=== PATIENT | male | born 1960 | race Hispanic/Latino ===

== ENCOUNTER 2018-01-14 20:30 | Emergency (ER) | payer SELFPAY ==
[2018-01-14] MEDS ORDERED: HYDROcodone/Acetaminophen 5/325 mg Tablet ONE (22:56)
--- NOTE | 2018-01-15 00:03 | CT ---
BRAIN CT WITHOUT IV CONTRAST: 01/14/18 HISTORY: 57-year-old male with history of a fall and injury from trauma. No focal mass or midline shift. No intra or extra-axial hemorrhage. There are moderate sinus mucosal changes bilaterally. IMPRESSION: No acute intracranial process. No mass or bleed. No significant change from 10/06/12. POS: [facility]
[2018-01-15] MEDS ORDERED: Methocarbamol 500 MG TAB PO SCH (00:15)
--- NOTE | 2018-01-15 06:39 | CT ---
CERVICAL SPINE CT SCAN WITHOUT IV CONTRAST: HISTORY: A 57-year-old male with a history of diffuse spinal tenderness and paresthesias following a fall. FINDINGS: Multilevel disk osteophytosis changes are noted. There is no evidence for an acute fracture or dislo cation. There are some prominent bilateral vascular carotid artery calcifications. There are some d isk osteophytosis changes, resulting in some central canal, lateral recess, and foraminal stenotic ch anges, most marked at C5-C6, followed by the C4-C5 and C3-C4 levels. If the patient has symptoms con cerning for acute radiculopathy, consider follow-up nonemergent MRI study for further evaluation. Th yodit disk osteophytosis changes appear to have progressed somewhat when compared to 08/29/2016. IMPRESSION: 1. No acute fracture or dislocation. 2. Multilevel disk osteophytosis with some variable severity canal, lateral recess, and foraminal st enosis, most marked at C5-C6, followed by C4-C5, possibly slightly progressive from a 2016 study. Co nsider follow-up MRI on a nonemergent basis. POS: [facility]
--- NOTE | 2018-01-15 06:40 | CT ---
THORACIC SPINE CT SCAN WITHOUT IV CONTRAST: HISTORY: A 57-year-old female with a history of thoracic spine pain, following trauma from a fall. FINDINGS: No evidence for acute fracture or dislocation. Generalized spondylosis. No significant canal stenos is. IMPRESSION: Unremarkable thoracic spine CT scan without intravenous contrast. No acute fracture or dislocation. POS: [facility]
--- NOTE | 2018-01-15 08:35 | CT ---
PRELIMINARY REPORT/[facility]/EMERGENTY AFTER-HOURS PROCEDURE CT Lumbar Spine Without Intravenous Contrast CLINICAL HISTORY: 57 years old, male; Injury or trauma; Fall; Initial encounter; Abrasion; Injury date: 01/14/18; Patient HX: 57 y/o m with presentation of fall x30-45 minutes ago. Pt reports that he slipped and fell onto his bottom. When he tried to get up, pt states that he started to have numbness in the lower back and ble and now states that he has tingling in his ble when he stands up. Pt states that he now also has tingling in his bue. Pt also reports that he hit his head, but denies loc TECHNIQUE: Axial computed tomography images of the lumbar spine without intravenous contrast. COMPARISON: No relevant prior studies available. FINDINGS: Vertebrae: There is no evidence of acute fracture or spondylolisthesis. Normal lordosis. Vertebral katherine dy heights are well-maintained. The visualized pelvic bones are normal Discs/spinal canal/neural foramina: Mild to moderate multilevel degenerative disc change with circumf erential disc bulges. No significant canal stenosis. Mild multilevel neural foraminal stenosis. L5/S1 vacuum disc phenomena. Soft tissues: Unremarkable. IMPRESSION: No acute fracture or central canal stenosis. Thank you for allowing us to participate in the care of your patient. Dictated and Authenticated by: Emmanuel Sims MD 01/15/2018 12:38 AM Central Time ([place] & [place]) FINAL REPORT LUMBAR SPINE CT NONCONTRAST: Date: 01/14/18 FINDINGS/IMPRESSION: I agree with the preliminary interpretation provided above by Becky. No acute fracture or subluxation. POS: [facility]
== END 2018-01-15 01:15 | disposition home or self-care (01) ==
LOC: ERS 20:30
DX: R20.2 Paresthesia of skin (principal); M54.9 Dorsalgia, unspecified; E11.9 Type 2 diabetes mellitus without complications; E78.5 Hyperlipidemia, unspecified; I10 Essential (primary) hypertension; F17.210 Nicotine dependence, cigarettes, uncomplicated; Z71.6 Tobacco abuse counseling; Z79.84 Long term (current) use of oral hypoglycemic drugs; Z79.899 Other long term (current) drug therapy; W01.0XXA Fall on same level from slipping, tripping and stumbling without subsequent striking against object, initial encounter
CPT/HCPCS: 70450; 72125; 72128; 72131; 99406

== ENCOUNTER 2019-02-08 13:36 | Outpatient (CLI) | payer MEDICAID ==
--- NOTE | 2019-02-08 14:52 | RAD ---
EXAM: Chest 2 views: HISTORY: COPD COMPARISON: 08/29/2016 FINDINGS: Postop midline sternotomy. Heart size:Within normal limits. Lungs:Clear of acute process. Atherosclerotic changes of the aorta. No confluent pneumonia, overt edema, pleural effusion, pneumothorax, or other significant acute proce ss. IMPRESSION: Stable appearance of the chest. Atherosclerosis of the aorta. No acute intrathoracic disease.
--- NOTE | 2019-02-10 03:53 | DN ---
DATE OF PROCEDURE: 02/08/2019 PROCEDURE: Arterial ultrasound performed on 02/08. INTERPRETATION: Bilateral lower extremity arterial Doppler ultrasounds were performed. The patient has a history of diabetes, hypertension, dyslipidemia, and coronary artery disease. He has bilateral upper and lower extremity pain with any movement. On the right, arterial waveforms are biphasic throughout. There is a slight decrease in the peak area at the level of the popliteal artery, but otherwise normal arterial ultrasound. Ankle-brachial index is 0.71. On the left, waveforms are biphasic throughout. There is a significant decrease in waveform peak area in the popliteal and again in the posterior tibial, dorsalis pedis waveform is normal. Ankle-brachial index is 0.65. ASSESSMENT: Probable superficial femoral artery/popliteal disease bilaterally, left greater than right with ankle-brachial indices consistent with bilateral claudication. Job ID: [id number]
== END 2019-02-08 13:37 | disposition home or self-care (01) ==
LOC: ULT 13:36
PROVIDERS: ATTEND Internal Medicine
DX: J44.9 Chronic obstructive pulmonary disease, unspecified (principal); I73.9 Peripheral vascular disease, unspecified; I70.0 Atherosclerosis of aorta
CPT/HCPCS: 71046; 93922

== ENCOUNTER 2022-10-30 08:59 | Emergency (ER) | payer MEDICAID ==
[2022-10-30] MEDS ORDERED: Ketorolac Tromethamine 30 MG/ML VIAL ONE (10:49)
[2022-10-30] MEDS ORDERED: predniSONE 20 MG TAB ONE (11:21)
== END 2022-10-30 12:00 | disposition home or self-care (01) ==
LOC: ERS 08:59
DX: M54.42 Lumbago with sciatica, left side (principal); E11.9 Type 2 diabetes mellitus without complications; E78.00 Pure hypercholesterolemia, unspecified; I10 Essential (primary) hypertension; F17.210 Nicotine dependence, cigarettes, uncomplicated; Z79.84 Long term (current) use of oral hypoglycemic drugs; Z79.899 Other long term (current) drug therapy
CPT/HCPCS: 96372; J1885; J7512

== ENCOUNTER 2023-01-30 13:28 | Outpatient (CLI) | payer OTHER | END 2023-01-30 13:29 | disposition home or self-care (01) | LOC: TBSIIMAG 13:28 | PROVIDERS: ATTEND Surgery | DX: M47.12 Other spondylosis with myelopathy, cervical region (principal); M47.26 Other spondylosis with radiculopathy, lumbar region; M48.02 Spinal stenosis, cervical region; M50.022 Cervical disc disorder at C5-C6 level with myelopathy; G95.89 Other specified diseases of spinal cord | CPT/HCPCS: 72141; 72148 ==

== ENCOUNTER 2023-05-04 14:11 | Emergency (ER) | payer OTHER ==
[2023-05-04] MEDS ORDERED: predniSONE 20 MG TAB ONE (16:20)
[2023-05-04] MEDS ORDERED: Ketorolac Tromethamine 30 MG/ML VIAL ONE (16:20)
== END 2023-05-04 16:47 | disposition home or self-care (01) ==
LOC: ERS 14:11
DX: M79.605 Pain in left leg (principal); F17.210 Nicotine dependence, cigarettes, uncomplicated; I10 Essential (primary) hypertension; E78.00 Pure hypercholesterolemia, unspecified; Z79.899 Other long term (current) drug therapy; Z79.84 Long term (current) use of oral hypoglycemic drugs
CPT/HCPCS: 96372; 99283; J1885; J7512

== ENCOUNTER 2023-05-11 14:04 | Outpatient (CLI) | payer OTHER ==
[2023-05-11 16:17] LABS: Mean Corpuscular HGB CONC 34.3 g/dL (32.0-36.0); Mean Corpuscular Hemoglobin 29.8 pg (27.0-33.0); Mean Corpuscular Volume 86.9 fl (81.2-95.1); Mean Platelet Volume 10.6 fl (7.4-10.4); Platelet Count 248 10x3/uL (150-450); RBC Distribution Width 13.1 % (11.5-14.5); Red Blood Cell (RBC) Count 5.03 10x6/uL (4.32-5.72); White Blood Cell (WBC) Count 11.2 10x3/uL (3.5-10.5)
[2023-05-11 16:27] LABS: Anion Gap 17 mmol/L (10-20); BUN (Urea Nitrogen) 18 mg/dL (8.4-25.7); Calc. Creatinine Clearance 0 mL/min (70-130); Calcium 9.4 mg/dL (7.8-10.44); Carbon Dioxide 27 mmol/L (23-31); Chloride 96 mmol/L (98-107); Estimated GFR 96; Glucose 274 mg/dL (80-115); Potassium 4.1 mmol/L (3.5-5.1); Sodium 136 mmol/L (136-145)
== END 2023-05-11 14:05 | disposition home or self-care (01) ==
LOC: LABBT 14:04
PROVIDERS: ATTEND Neurological Surgery
DX: Z01.818 Encounter for other preprocedural examination (principal); M47.812 Spondylosis without myelopathy or radiculopathy, cervical region
CPT/HCPCS: 80048; 85027; 93005; 93010

== ENCOUNTER 2023-05-18 05:34 | Day surgery (SDC) | payer OTHER ==
[2023-05-18] MEDS ORDERED: SUGAMMADEX SODIUM 200 MG/2 ML VIAL ONE (06:20)
[2023-05-18] MEDS ORDERED: fentaNYL PF 100 MCG/2 ML SYRINGE ONE (06:21)
[2023-05-18] MEDS ORDERED: Thrombin 5000 UNITS/5 ML VIAL ONE (06:45)
[2023-05-18] MEDS ORDERED: Sodium Chloride 0.9% 100 ML ONE ×2 (06:51→10:54)
[2023-05-18] MEDS ORDERED: CEFAZOLIN 2 GM VIAL ONE ×2 (06:51→10:54)
[2023-05-18] MEDS ORDERED: Vasopressin 20 UNITS/ML VIAL ONE (07:06)
[2023-05-18] MEDS ORDERED: Phenylephrine 10 MG/ML VIAL ONE (07:06)
[2023-05-18] MEDS ORDERED: Ondansetron PF 4 MG/2 ML Vial ONE (07:26)
[2023-05-18] MEDS ORDERED: ePHEDrine Sulfate 50 MG/10 ML VIAL ONE (07:26)
[2023-05-18] MEDS ORDERED: Rocuronium Bromide 10 MG/ML (10ML VIAL) ONE (07:26)
[2023-05-18] MEDS ORDERED: Dexamethasone 20 MG/5 ML VIAL ONE (07:26)
[2023-05-18] MEDS ORDERED: PROPOFOL 200 MG/20 ML VIAL ONE (07:26)
[2023-05-18] MEDS ORDERED: Labetalol HCl 100 MG/20 ML VIAL ONE (07:26)
[2023-05-18] MEDS ORDERED: Lidocaine 1% PF 5 ML VIAL ONE (07:26)
[2023-05-18] MEDS ORDERED: PHENYLEPHRINE-NS 100 MCG/ML 10 ML SYRINGE ONE (07:26)
[2023-05-18] MEDS ORDERED: Tamsulosin HCl 0.4 MG CAP ONE (08:48)
[2023-05-18] MEDS ORDERED: Acetaminophen/Codeine 30-300mg Tablet ONE (10:03)
== END 2023-05-18 11:40 | disposition home or self-care (01) ==
LOC: SDC 05:34
PROVIDERS: ATTEND Neurological Surgery
PROC: 0RG10K0 Fusion of Cervical Vertebral Joint with Nonautologous Tissue Substitute, Anterior Approach, Anterior Column, Open Approach (ICD-10-PCS; principal; 2023-05-18)
PROC: 0RG40A0 Fusion of Cervicothoracic Vertebral Joint with Interbody Fusion Device, Anterior Approach, Anterior Column, Open Approach (ICD-10-PCS; principal; 2023-05-18)
DX: M48.02 Spinal stenosis, cervical region (principal); G99.2 Myelopathy in diseases classified elsewhere; E78.5 Hyperlipidemia, unspecified; M19.90 Unspecified osteoarthritis, unspecified site; Z79.84 Long term (current) use of oral hypoglycemic drugs; Z79.899 Other long term (current) drug therapy; Z86.73 Personal history of transient ischemic attack (TIA), and cerebral infarction without residual deficits; Z95.5 Presence of coronary angioplasty implant and graft
CPT/HCPCS: C1713; C1889; J1100; J2370; J2405; J2704; J3490

== ENCOUNTER 2024-11-21 13:31 | Emergency (ER) | payer OTHER, MEDICAID ==
[2024-11-21 15:04] LABS: #Basophils 0.07 10x3/uL (0.0-0.2); %Basophils 0.5 % (0.0-1.0); %Eosinophils 0.9 % (0.0-10.0); %Lymphocytes 9.4 % (21.0-51.0); %Monocytes 5.6 % (0.0-10.0); %Neutrophils 83.1 % (42.0-75.0); Hematocrit 36.4 % (42.0-52.0); Mean Corpuscular Hemoglobin 29.9 pg (27.0-31.0); Mean Corpuscular Volume 90.5 fL (78.0-98.0); Mean Platelet Volume 9.8 fL (7.4-10.4); Platelet Count 233 10x3/uL (130-400); RBC Distribution Width 14.3 % (11.5-14.5); Red Blood Cell (RBC) Count 4.02 mill/uL (4.70-6.10)
[2024-11-21 15:26] LABS: ALT (SGPT) Less than 7 U/L (Less than 45); AST (SGOT) 15 U/L (11-34); Albumin 3.8 g/dL (3.1-4.5); Alkaline Phosphatase 96 U/L (40-110); Anion Gap 15 mmol/L (10-20); BUN (Urea Nitrogen) 9 mg/dL (8.4-25.7); Bilirubin, Total 0.6 mg/dL (0.3-1.2); Calc. Creatinine Clearance 0 mL/min (70-130); Calcium 9.1 mg/dL (7.8-10.44); Carbon Dioxide 26 mmol/L (23-31); Chloride 102 mmol/L (98-107); Estimated GFR 95; Globulin 3.6 g/dL (2.4-3.5); Glucose 193 mg/dL (80-115); Potassium 4.4 mmol/L (3.5-5.1); Protein, Total 7.4 g/dL (5.8-8.1); Sodium 139 mmol/L (136-145)
[2024-11-21] MEDS ORDERED: fentaNYL 50 mcg/mL 1 mL Vial ONE (15:54)
[2024-11-21] MEDS ORDERED: HYDROcodone/Acetaminophen 5/325 mg Tablet ONE (17:25)
== END 2024-11-21 17:50 | disposition home or self-care (01) ==
LOC: ERS 13:31
DX: L03.115 Cellulitis of right lower limb (principal); E11.621 Type 2 diabetes mellitus with foot ulcer; E11.9 Type 2 diabetes mellitus without complications; I10 Essential (primary) hypertension; E78.5 Hyperlipidemia, unspecified; F17.210 Nicotine dependence, cigarettes, uncomplicated; E78.00 Pure hypercholesterolemia, unspecified; Z79.899 Other long term (current) drug therapy; Z79.84 Long term (current) use of oral hypoglycemic drugs
CPT/HCPCS: 73610; 73630; 80053; 83605; 85025; 85379; 86141; 87040; 93971; J3010; 96374

== ENCOUNTER 2024-11-24 13:16 | Inpatient (IN) | payer OTHER, MEDICAID ==
[2024-11-24 13:46] LABS: #Basophils 0.07 10x3/uL (0.0-0.2); %Basophils 0.6 % (0.0-1.0); %Eosinophils 0.5 % (0.0-10.0); %Lymphocytes 12.4 % (21.0-51.0); %Monocytes 6.4 % (0.0-10.0); %Neutrophils 79.6 % (42.0-75.0); Hematocrit 37.2 % (42.0-52.0); Hemoglobin 12.3 g/dL (14.0-18.0); Mean Corpuscular HGB CONC 33.1 g/dL (32.0-36.0); Mean Corpuscular Hemoglobin 29.3 pg (27.0-31.0); Mean Corpuscular Volume 88.6 fL (78.0-98.0); Mean Platelet Volume 9.2 fL (7.4-10.4); Platelet Count 231 10x3/uL (130-400); RBC Distribution Width 14.1 % (11.5-14.5)
[2024-11-24 14:00] LABS: ALT (SGPT) Less than 7 U/L (Less than 45); AST (SGOT) 17 U/L (11-34); Albumin 3.7 g/dL (3.1-4.5); Alkaline Phosphatase 96 U/L (40-110); Anion Gap 13 mmol/L (10-20); BUN (Urea Nitrogen) 6 mg/dL (8.4-25.7); Bilirubin, Total 0.3 mg/dL (0.3-1.2); Calc. Creatinine Clearance 0 mL/min (70-130); Calcium 9.1 mg/dL (7.8-10.44); Carbon Dioxide 25 mmol/L (23-31); Chloride 104 mmol/L (98-107); Estimated GFR 86; Globulin 3.8 g/dL (2.4-3.5); Glucose 167 mg/dL (80-115); Potassium 4.1 mmol/L (3.5-5.1); Protein, Total 7.5 g/dL (5.8-8.1); Sodium 138 mmol/L (136-145)
[2024-11-24] MEDS ORDERED: Iopamidol-370 76% 500 ML MDV (1 ML CHARGE) ONE (14:02)
[2024-11-24] MEDS ORDERED: Morphine 4 MG/ML VIAL ONE (14:32)
[2024-11-24] MEDS ORDERED: Ampicillin/Sulbactam 3 GM VIAL ONE (14:32)
[2024-11-24] MEDS ORDERED: Sodium Chloride 0.9% 100 ML ONE (14:32)
[2024-11-24] MEDS ORDERED: Senokot S 8.6-50 MG TAB PO PRN (14:40)
[2024-11-24] MEDS ORDERED: Dextrose 5% in Water 1,000 ML IV PRN (14:44)
[2024-11-24] MEDS ORDERED: Dextrose 50% Abboject 50 ML SYRINGE SLOW IVP PRN (14:44)
[2024-11-24] MEDS ORDERED: Insulin Lispro 100 UNIT/ML 10 ML VIAL SC PRN (14:44)
[2024-11-24] MEDS ORDERED: Glucagon 1 MG/ML KIT IM PRN (14:44)
[2024-11-24 16:29] VITALS: BMI 22.1
[2024-11-24] MEDS: Vancomycin (BATCH) 1.75 GM in Premix 1 BAG IVPB SCH (16:41)
[2024-11-24 17:05] LABS: Lactic Acid 2.21 mmol/L (0.50-2.20)
[2024-11-24] MEDS: Cefepime 2 GM in Sodium Chloride 0.9% 100 ML IVPB SCH (17:21)
[2024-11-24] MEDS: Sodium Chloride 0.9% 1,000 ML IV SCH ×2 (17:21)
[2024-11-24] MEDS: Atorvastatin Calcium 20 MG TAB PO SCH (20:11)
[2024-11-24] MEDS: Carvedilol 3.125 MG TAB PO SCH (20:11)
[2024-11-24] MEDS: traMADol HCl 50 MG TAB PO PRN (23:45)
[2024-11-25] MEDS: Vancomycin 1 GM in Premix 1 BAG IVPB SCH ×2 (01:16→13:00)
[2024-11-25] MEDS: Sodium Chloride 0.9% 100 ML ONE (04:41)
[2024-11-25 05:30] LABS: #Basophils 0.06 10x3/uL (0.0-0.2); %Basophils 0.8 % (0.0-1.0); %Eosinophils 1.3 % (0.0-10.0); %Lymphocytes 19.5 % (21.0-51.0); %Monocytes 6.5 % (0.0-10.0); %Neutrophils 71.5 % (42.0-75.0); Hematocrit 33.9 % (42.0-52.0); Hemoglobin 11.2 g/dL (14.0-18.0); Mean Corpuscular Hemoglobin 29.7 pg (27.0-31.0); Mean Corpuscular Volume 89.9 fL (78.0-98.0); Mean Platelet Volume 9.5 fL (7.4-10.4); Platelet Count 222 10x3/uL (130-400); RBC Distribution Width 14.2 % (11.5-14.5); Red Blood Cell (RBC) Count 3.77 mill/uL (4.70-6.10)
[2024-11-25 05:42] LABS: CRP,High Sensitivity (Inhouse) 2.82 mg/dL (< or = 0.5); Vancomycin, Random 29.7 ug/mL (See Comment)
[2024-11-25 05:43] LABS: ALT (SGPT) 17 U/L (Less than 45); AST (SGOT) 36 U/L (11-34); Albumin 3.2 g/dL (3.1-4.5); Alkaline Phosphatase 142 U/L (40-110); Anion Gap 14 mmol/L (10-20); BUN (Urea Nitrogen) 6 mg/dL (8.4-25.7); Bilirubin, Total 0.4 mg/dL (0.3-1.2); Calc. Creatinine Clearance 83 mL/min (70-130); Calcium 8.4 mg/dL (7.8-10.44); Carbon Dioxide 22 mmol/L (23-31); Cardiac Risk 3.1 (Less than 4.5); Chloride 106 mmol/L (98-107); Cholesterol 98 mg/dl (< 200 Desired); Estimated GFR 96; Globulin 3.3 g/dL (2.4-3.5); Glucose 108 mg/dL (80-115); HDL Cholesterol 32 mg/dL (>60 Neg Risk); LDL Cholesterol, Calculated 53 mg/dL; Potassium 3.8 mmol/L (3.5-5.1); Protein, Total 6.5 g/dL (5.8-8.1); Sodium 138 mmol/L (136-145); Triglycerides 67 mg/dL (Less than 150)
[2024-11-25] MEDS: Aspirin 81 mg Enteric Coated Tablet PO SCH (08:23)
[2024-11-25] MEDS: glipiZIDE 5 MG TAB PO SCH (08:23)
[2024-11-25] MEDS: Morphine 2 MG/ML VIAL SLOW IVP PRN (08:58)
[2024-11-25] MEDS: Enoxaparin 40 MG (0.4 mL) SYRINGE SC SCH (09:19)
[2024-11-25] MEDS ORDERED: Lorazepam 2 MG/ML VIAL SLOW IVP PRN (11:30)
[2024-11-25] MEDS ORDERED: Morphine 4 MG/ML VIAL SLOW IVP PRN (11:30)
[2024-11-25] MEDS: Morphine 4 MG/ML VIAL SLOW IVP PRN (15:33)
[2024-11-25 15:49] VITALS: BMI 22.1
[2024-11-25] MEDS: Acetaminophen 325 MG TAB PO PRN (18:20)
[2024-11-26 08:31] LABS: #Basophils 0.07 10x3/uL (0.0-0.2); %Basophils 0.7 % (0.0-1.0); %Eosinophils 1.2 % (0.0-10.0); %Lymphocytes 13.4 % (21.0-51.0); %Monocytes 8.1 % (0.0-10.0); %Neutrophils 76.2 % (42.0-75.0); Hematocrit 32.8 % (42.0-52.0); Hemoglobin 10.8 g/dL (14.0-18.0); Mean Corpuscular HGB CONC 32.9 g/dL (32.0-36.0); Mean Corpuscular Hemoglobin 29.4 pg (27.0-31.0); Mean Corpuscular Volume 89.4 fL (78.0-98.0); Mean Platelet Volume 9.3 fL (7.4-10.4); Platelet Count 214 10x3/uL (130-400); RBC Distribution Width 14.1 % (11.5-14.5); Red Blood Cell (RBC) Count 3.67 mill/uL (4.70-6.10)
[2024-11-26] MEDS: Calcium Carbonate 500 MG ChewTAB PO PRN (15:50)
[2024-11-26] MEDS: Ondansetron PF 4 MG/2 ML Vial IVP PRN (15:51)
[2024-11-27 05:49] LABS: #Basophils 0.08 10x3/uL (0.0-0.2); %Basophils 0.8 % (0.0-1.0); %Eosinophils 0.9 % (0.0-10.0); %Lymphocytes 13.9 % (21.0-51.0); %Monocytes 9.9 % (0.0-10.0); %Neutrophils 74.1 % (42.0-75.0); Hematocrit 29.4 % (42.0-52.0); Hemoglobin 9.7 g/dL (14.0-18.0); Mean Corpuscular Hemoglobin 29.4 pg (27.0-31.0); Mean Corpuscular Volume 89.1 fL (78.0-98.0); Mean Platelet Volume 9.5 fL (7.4-10.4); Platelet Count 206 10x3/uL (130-400); RBC Distribution Width 13.9 % (11.5-14.5)
[2024-11-27 06:06] LABS: Anion Gap 13 mmol/L (10-20); BUN (Urea Nitrogen) 6 mg/dL (8.4-25.7); Calc. Creatinine Clearance 80 mL/min (70-130); Carbon Dioxide 24 mmol/L (23-31); Chloride 105 mmol/L (98-107); Estimated GFR 95; Glucose 120 mg/dL (80-115); Potassium 3.7 mmol/L (3.5-5.1); Sodium 138 mmol/L (136-145)
[2024-11-28 06:43] LABS: %Basophils 0.9 % (0.0-1.0); %Eosinophils 1.3 % (0.0-10.0); %Lymphocytes 16.5 % (21.0-51.0); %Monocytes 9.5 % (0.0-10.0); %Neutrophils 71.2 % (42.0-75.0); Hematocrit 30.5 % (42.0-52.0); Hemoglobin 10.2 g/dL (14.0-18.0); Mean Corpuscular HGB CONC 33.4 g/dL (32.0-36.0); Mean Corpuscular Hemoglobin 29.7 pg (27.0-31.0); Mean Corpuscular Volume 88.9 fL (78.0-98.0); Mean Platelet Volume 9.8 fL (7.4-10.4); Platelet Count 217 10x3/uL (130-400); RBC Distribution Width 14.1 % (11.5-14.5); Red Blood Cell (RBC) Count 3.43 mill/uL (4.70-6.10)
[2024-11-28 07:02] LABS: Anion Gap 13 mmol/L (10-20); BUN (Urea Nitrogen) 8 mg/dL (8.4-25.7); Calc. Creatinine Clearance 81 mL/min (70-130); Calcium 8.6 mg/dL (7.8-10.44); Carbon Dioxide 21 mmol/L (23-31); Chloride 107 mmol/L (98-107); Estimated GFR 95; Glucose 169 mg/dL (80-115); Potassium 3.7 mmol/L (3.5-5.1); Sodium 137 mmol/L (136-145)
[2024-11-28 07:05] LABS: Vancomycin, Random 34.4 ug/mL (See Comment)
[2024-11-28] MEDS: Sodium Chloride 0.9% 100 ML ONE (17:46)
[2024-11-28] MEDS: VANCOMYCIN 1.25 GM/250 ML BAG 1.25 GM in Premix 1 BAG IVPB SCH (20:32)
[2024-11-29] MEDS: Sodium Chloride 0.9% 100 ML ONE (04:22)
[2024-11-29 06:41] LABS: %Basophils 0.9 % (0.0-1.0); %Eosinophils 1.5 % (0.0-10.0); %Lymphocytes 14.1 % (21.0-51.0); %Monocytes 7.9 % (0.0-10.0); %Neutrophils 75.2 % (42.0-75.0); Hematocrit 30.4 % (42.0-52.0); Hemoglobin 10.2 g/dL (14.0-18.0); Mean Corpuscular HGB CONC 33.6 g/dL (32.0-36.0); Mean Corpuscular Hemoglobin 29.7 pg (27.0-31.0); Mean Corpuscular Volume 88.4 fL (78.0-98.0); Mean Platelet Volume 9.8 fL (7.4-10.4); Platelet Count 219 10x3/uL (130-400); Red Blood Cell (RBC) Count 3.44 mill/uL (4.70-6.10)
[2024-11-29 06:51] LABS: Anion Gap 14 mmol/L (10-20); BUN (Urea Nitrogen) 8 mg/dL (8.4-25.7); Calc. Creatinine Clearance 98 mL/min (70-130); Calcium 8.6 mg/dL (7.8-10.44); Carbon Dioxide 21 mmol/L (23-31); Chloride 104 mmol/L (98-107); Estimated GFR 101; Glucose 122 mg/dL (80-115); Potassium 4.1 mmol/L (3.5-5.1); Sodium 135 mmol/L (136-145)
[2024-11-29] MEDS: Diclofenac 1% 50 GM TOPICAL GEL TP SCH (12:23)
[2024-11-29] MEDS: Insulin Lispro 100 UNIT/ML 10 ML VIAL SC PRN (12:34)
[2024-11-29] MEDS: oxyCODONE 5 MG TAB PO PRN (16:27)
[2024-11-29] MEDS: metroNIDAZOLE 500 MG TAB PO SCH (20:04)
[2024-11-29] MEDS: Amoxicillin/Potassium Clav 875 MG TAB PO SCH (20:04)
[2024-11-29] MEDS ORDERED: Cefdinir 300 MG CAP PO SCH (21:00)
[2024-11-30 03:36] LABS: HBsAg Index 0.26 S/CO (0-0.99); HIV (1/2) Antibody/Antigen NONREACTIVE (NonReactive); HIV 1/2 INDEX 0.05 S/CO (<1.00); Hep B Surf Ag NONREACTIVE S/CO (NonReactive); Hep C IgG Ab NONREACTIVE S/CO (NonReactive); Hep C Index 0.15 S/CO (0-0.79)
[2024-11-30 12:04] VITALS: BP 121/66; TEMP 97.9
== END 2024-11-30 14:36 | disposition home or self-care (01) | DRG 300 ==
LOC: SUATTDRO 13:16 → ERS 13:16 → T4-B 15:26
PROVIDERS: ADMIT Internal Medicine; ATTEND Student in an Organized Health Care Education/Training Program
DX: E11.52 Type 2 diabetes mellitus with diabetic peripheral angiopathy with gangrene (principal); I96 Gangrene, not elsewhere classified; E11.621 Type 2 diabetes mellitus with foot ulcer; L97.519 Non-pressure chronic ulcer of other part of right foot with unspecified severity; I25.10 Atherosclerotic heart disease of native coronary artery without angina pectoris; I10 Essential (primary) hypertension; E78.5 Hyperlipidemia, unspecified; F12.91 Cannabis use, unspecified, in remission; F17.210 Nicotine dependence, cigarettes, uncomplicated; Z95.0 Presence of cardiac pacemaker; M79.673 Pain in unspecified foot; I99.8 Other disorder of circulatory system
CPT/HCPCS: 36415; 36416; 75635; 80048; 80053; 80061; 80202; 83036; 83605; 84145; 85025; 86141; 86803; 87040; 87340; 87389; 96365; 96367; 96375; J0295; J0692; J1650; J2270; J2272; J2405; J3370; J7030; Q9967